=== PATIENT | female | born 1955 | race Caucasian/White ===

== ENCOUNTER 2017-04-03 14:20 | Emergency (ER) | payer OTHER ==
[~2017-04-03] VITALS: Ht 172.7 cm; Wt 74.8 kg
--- NOTE | 2017-04-03 14:41 | RAD ---
CT head without contrast 04/03/2017 Clinical indication: Speech deficit. Comparison: None. Technique: Multiple CT images of the head were obtained without contrast according to standard protocol. PQRS Compliance Statement: One or more of the following individualized dose reduction techniques were utilized for this examination: 1. Automated exposure control 2. Adjustment of the mA and/or kV according to patient size 3. Use of iterative reconstruction technique Findings: No acute intracranial hemorrhage or extra-axial fluid collection. No midline shift. There is mild periventricular white matter low attenuation compatible with mild nonspecific white matter disease. No midline shift. The basal cisterns are patent. The mastoid air cells and visualized paranasal sinuses are well aerated. Impression: 1. No acute intracranial hemorrhage. 2. Mild nonspecific white matter disease, may be related to chronic small vessel ischemic disease.
[2017-04-03 14:46] VITALS: BP 161/97
--- NOTE | 2017-04-03 14:54 | RAD ---
Single view chest 04/03/2017. Clinical indication: Altered mental status. Comparison: Chest 01/14/2016. Findings: Bilateral breast implant capsular calcification. Cardiac and mediastinal silhouettes are unremarkable. Mediastinal, left hilar and left pulmonary calcified granulomas. Calcified atheromatous disease of the thoracic aorta. No pleural effusion, pneumothorax or focal consolidation Impression: No acute cardiopulmonary abnormality.
[2017-04-03 15:00] LABS: BASO # 0.1 x10^3/uL (0.0-0.2); BASO % 1 % (0-3); EOS # 0.2 x10^3/uL (0.0-0.7); EOS % 3 % (0-3); HEMOGLOBIN 15.7 g/dL (12.0-15.5); LYMPH # 1.9 x10^3/uL (1.0-4.8); LYMPH % 27 % (24-48); MEAN CORPUSCULAR HEMOGLOBIN 34 pg (25-35); MEAN CORPUSCULAR HGB CONC 35 g/dL (31-37); MEAN CORPUSCULAR VOLUME 96 fL (79-100); MONO # 0.4 x10^3/uL (0.0-1.1); MONO % 6 % (0-9); NEUT # 4.5 x10^3uL (1.8-7.7); NEUT % 63 % (31-73); PLATELET COUNT 311 x10^3/uL (140-400); RED BLOOD COUNT 4.68 x10^6/uL (3.50-5.40); RED CELL DISTRIBUTION WIDTH 13.9 % (11.5-14.5); WHITE BLOOD COUNT 7.1 x10^3/uL (4.0-11.0)
--- NOTE | 2017-04-03 15:07 | PHYS DOC ---
General Chief Complaint: NEURO SYMPTOMS/DEFICITS Stated Complaint: NA Time Seen by MD: 14:23 Source: patient Exam Limitations: no limitations Problems: History of Present Illness Initial Comments Patient is a 62-year-old female who arrives to the emergency department accompanied by a coworker code stroke. Patient went straight to CT and history obtained by ED staff from the coworker and patient. Initially. Coworker states that approximately 1:45 PM today the patient suddenly stopped talking. Although coworkers could talk to the patient and she appeared to understand she was unable to make any verbalization. 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 On ED after CT the patient began to be able to speak again she denied headache or other focal neurologic deficits. She states that she only came to the ED to appease her boss and did not want to stay. She did agree to stay for CT evaluation which was called back to me as negative. Prior to my seeing the patient staff comes to me telling me she wants to leave AMA. Timing/Duration: other Severity: moderate Modifying Factors: improves with other Associated Symptoms: other Allergies: Coded Allergies: Penicillins (Verified Allergy, Unknown, 04/03/17) Past Medical History Medical History: CVA/TIA/stroke Surgical History: noncontributory Review of Systems All Other Systems: Reviewed and Negative (see history of present illness other review of systems completed) Physical Exam General Appearance: other (see history of present illness and all other physical exam completed) Orders, Labs, Meds Upon receiving news the patient wanted to leave AMA and went to the bedside. The patient had removed her gown and was wearing her street clothes and stated that she did not want a big bill. She said she been ruled out this before and everything turned out to be fine and she Would be that way this time as well. She did not appear to be altered or impaired on any intoxicating substance, she appeared to be of sound mind and exhibited UCAR capacity. I advised her that she would be allowed to sign out AMA with informed consent and she agreed. I discussed risks and benefits of staying for further evaluation and results of current testing versus leaving. Potential benefits or early diagnosis of a very treatable condition which could be life or limb saving. Risks of leaving included possible increased morbidity, loss of quality of life, and . Patient states that she is aware of these issues and continues to request sign out AGAINST MEDICAL ADVICE. I did discuss the departure instructions with her verbally and provided them in written form, I advised her to follow up with her doctor later today or tomorrow and to try to schedule outpatient neurology evaluation. She was advised that she could return at any time for further evaluation and was signed out AGAINST MEDICAL ADVICE by ED staff. I did not perform a physical exam or obtain a full review of systems due to the patient's cooperation and desire to leave AMA Departure Time of Disposition: 15:03 Disposition: 07 AGAINST MEDICAL ADVICE Diagnosis: CVA/TIA Condition: IMPROVED Patient Instructions: Stroke, [id number]-Hgnh Additional Instructions: As discussed, it does appear that you may have suffered a CVA or TIA today. At this point you are requesting immediate discharge from the hospital for results are back. Risks and benefits of staying versus leaving have been discussed with you in detail, potential benefits of staying are early and diagnosis and treatment. Potential risks of leaving our loss of quality of life and/or . You are of sound mind and have the right to leave without further treatment if you choose. You may also choose to return to the emergency department at any time for further evaluation and treatment. Recommend taking an aspirin a day and follow-up with your doctor this week for recheck and to schedule outpatient neurology consultation if you do not choose to return to the hospital. PARESH CHAVIS DO Apr 03, 2017 15:07
[2017-04-03 15:17] LABS: ALBUMIN 3.7 g/dL (3.4-5.0); ALBUMIN/GLOBULIN RATIO 1.1 (1.0-1.7); C REACTIVE PROTEIN 0.7 mg/L (0-3.3); CALCIUM 9.3 mg/dL (8.5-10.1); CREATININE 0.6 mg/dL (0.6-1.0); GFR 101.3; POTASSIUM 4.7 mmol/L (3.5-5.1); TOTAL BILIRUBIN 0.4 mg/dL (0.2-1.0)
== END 2017-04-03 15:06 | disposition left against medical advice (07) ==
LOC: ER 14:20
DX: R29.810 Facial weakness (principal); Z86.73 Personal history of transient ischemic attack (TIA), and cerebral infarction without residual deficits; Z88.0 Allergy status to penicillin
CPT/HCPCS: 36415; 70450; 71045; 80053; 83605; 84484; 85025; 85610; 85730; 86140; 99285; G0480

== ENCOUNTER 2019-09-19 10:11 | Emergency (ER) | payer BC, MEDICARE ==
[~2019-09-19] VITALS: Ht 172.7 cm; Wt 52.3 kg
[2019-09-19] MEDS ORDERED: IV NORMAL SALINE 1,000ML 1,000 ML IV SCH (10:25)
--- NOTE | 2019-09-19 10:29 | PHYS DOC ---
Past History Past Medical History: COPD, CVA, Stroke Past Surgical History: No Surgical History Smoking: Less than 1pk/day Alcohol Use: None Drug Use: None General Adult EDM: Chief Complaint: NAUSEA/VOMITING/DIARRHEA HPI: HPI: Patient is a 64 year old female who presents for evaluation of some abdominal discomfort. Patient has been having some black vomit as well as black stools over the past 2 days. Patient was seen at a [facility] urgent care clinic yesterday and given Zofran with some improvement of symptoms. Patient is on Plavix because she has a history of prior strokes. Patient otherwise benign appearing with no other complaints. Incidentally patient was COVID positive in July but did not have a lot of symptoms at that time Review of Systems: Review of Systems: Constitutional: Denies fever or chills Eyes: Denies change in visual acuity HENT: Denies nasal congestion or sore throat Respiratory: Denies cough or shortness of breath Cardiovascular: Denies chest pain or edema GI: Denies abdominal pain, has nausea, vomiting, with bloody stools, no diarrhea : Denies dysuria Musculoskeletal: Denies back pain or joint pain Integument: Denies rash Neurologic: Denies headache, focal weakness or sensory changes Endocrine: Denies polyuria or polydipsia Lymphatic: Denies swollen glands Psychiatric: Denies depression or anxiety Heart Score: Risk Factors: Risk Factors: DM, Current or recent (<one month) smoker, HTN, HLP, family history of CAD, obesity. Risk Scores: Score 0 - 3: 2.5% MACE over next 6 weeks - Discharge Home Score 4 - 6: 20.3% MACE over next 6 weeks - Admit for Clinical Observation Score 7 - 10: 72.7% MACE over next 6 weeks - Early Invasive Strategies Allergies: Allergies: Allergies Coded Allergies Type Severity Reaction Last Updated Verified Penicillins Allergy Unknown 04/03/17 Yes Physical Exam: PE: Constitutional: Well developed, well nourished, mild acute distress, non-toxic appearance. [] HENT: Normocephalic, atraumatic, bilateral external ears normal, oropharynx moist, no oral exudates, nose normal. [] Eyes: PERRL, EOMI, conjunctiva normal, no discharge. [] Neck: Normal range of motion, no tenderness, supple, no stridor. [] Cardiovascular:Heart rate regular rhythm, no murmur [] Lungs & Thorax: Bilateral breath sounds, scant wheezing bilaterally [] Abdomen: Bowel sounds normal, soft, no tenderness, no masses, no pulsatile masses. [] Skin: Warm, dry, no erythema, no rash. [] Back: No tenderness. [] Extremities: No tenderness, no cyanosis, ROM intact, no edema. [] Neurologic: Alert and oriented X 3, normal motor function, normal sensory function, no focal deficits noted. [] Psychologic: Affect normal, judgement normal, mood normal. Rectal: large non-bleeding hemorrhoid present, tender rectum, black stool present[] Current Patient Data: Vital Signs: Vital Signs Date Time Temp Pulse Resp B/P (MAP) Pulse Ox O2 Delivery O2 Flow Rate FiO2 09/19/19 10:21 97.8 93 16 117/77 (90 97 Room Air EKG: EKG: EKG shows normal sinus rhythm, rate 95, nonspecific ST segment changes and a flat T wave in lead aVL, not STEMI [] Radiology/Procedures: Radiology/Procedures: [address] [address] IMAGING REPORT Signed PATIENT: CALIXTO BARRAZA ACCOUNT: [id number] : 1955 LOCATION: ER AGE: 64 SEX: F EXAM STATUS: REG ER ORD. PHYSICIAN: BLUE MANRIQUE DO REASON: abd discomfort, dark stools, dark vomit 60CC OMNI PROCEDURE: CT ABD PELV W/ORAL&IV CONTRAST Examination: CT ABD PELV W/ORAL IV CONTRAST History: Reason: abd discomfort, dark stools, dark vomit 60CC OMNI / Spl. Instructions: DRINKING 1130 / History: Comparison/Correlation: None Findings: Axial images of the abdomen and pelvis were obtained finding IV and oral contrast. Sagittal and coronal reformatted images were provided. Breast implants which are partially calcified are noted bilaterally on the topogram. Small hiatal hernia is present. Visualized lung bases are clear. Liver, spleen, pancreas, adrenal glands, and right kidney are normal. Nonobstructive left renal superior pole calyceal calculus is present. Circumferential wall thickening of the gastric pyloric region is present. This may represent contraction or spasm. No surrounding inflammatory finding. Gallbladder fossa is unremarkable. Slight intrahepatic biliary prominence is noted. No significant biliary distention. No large abdominal or pelvic lymph nodes. No ascites or pelvic free fluid. No inflammatory changes involving the bowel. No bowel obstruction. No inflammatory changes in particular noted about the cecum. Appendix is not definitely delineated. Minimal mesenteric fat may limit assessment. Urinary bladder is unremarkable. Uterus is atrophic or absent. Minimal retrolisthesis of L5 in relation to L4. Disc osteophyte complex noted from L1 through L4. Impression: Small hiatal hernia. No acute inflammatory process or obstruction. Circumferential wall thickening of the gastric pyloric region. This may represent contraction or spasm. Correlate clinically in determining further assessment. Nonobstructive left renal calculus. PQRS Compliance Statement: One or more of the following individualized dose reduction techniques were utilized for this examination: 1. Automated exposure control 2. Adjustment of the mA and/or kV according to patient size 3. Use of iterative reconstruction technique Electronically signed by: Paul Kwong MD (09/19/2019 1:18 PM) [id number] DICTATED AND SIGNED BY: PAUL KWONG MD DATE: 09/19/19 1318 CC: PCP,NO; BLUE MANRIQUE DO ~ [] Course & Med Decision Making: Course & Med Decision Making Pertinent Labs and Imaging studies reviewed. (See chart for details) [] Dragon Disclaimer: Courtney Disclaimer: This electronic medical record was generated, in whole or in part, using a voice recognition dictation system. 1315 stable, feeling better at this time. Dr. Howard (hospitalist) called and we discussed case at length. We agreed patient needs to be admitted but his preference would be to transfer the patient to [facility] because they have GI and general surgical capability. Patient has a gastrointestinal b leed and is on Plavix as a blood thinner. We felt this patient was too dangerous to go home. Patient is refused ambulance transport however, her daughter will drive her. She signed AGAINST MEDICAL ADVICE regarding the ambulance transport 1332 patient change her mind and now wishes to be transferred to [facility]. Her family doctor is at that hospital. 1403 Dr. Hidalgo, pt's physician from [facility] called back and accepted pt for transfer. Pt continues to refuse ambulance transfer. Departure Departure: Impression: Primary Impression: Upper GI bleed Additional Impression: Anemia Disposition: 05 TRANSFER OTHER (Dr. Hidalgo is the accepting physician to [facility]) Condition: STABLE Referrals: PCP,NO (PCP) Justification of Admission: Justification of Admission: Justification of Admission Dx: N/A BLUE MANRIQUE DO Sep 19, 2019 10:29
[2019-09-19] MEDS ORDERED: FAMOTIDINE 20 MG/2 ML VIAL IVP ONE (10:30)
--- NOTE | 2019-09-19 10:45 | EKG ---
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
[2019-09-19 11:12] LABS: BASO % 0 % (0-3); EOS % 0 % (0-3); HEMATOCRIT 32.7 % (36.0-47.0); HEMOGLOBIN 10.7 g/dL (12.0-15.5); LYMPH # 1.3 x10^3/uL (1.0-4.8); LYMPH % 11 % (24-48); MEAN CORPUSCULAR HEMOGLOBIN 34 pg (25-35); MEAN CORPUSCULAR HGB CONC 33 g/dL (31-37); MEAN CORPUSCULAR VOLUME 102 fL (79-100); MONO # 0.4 x10^3/uL (0.0-1.1); MONO % 3 % (0-9); NEUT # 9.8 x10^3uL (1.8-7.7); NEUT % 85 % (31-73); PLATELET COUNT 313 x10^3/uL (140-400); RED CELL DISTRIBUTION WIDTH 15.1 % (11.5-14.5); WHITE BLOOD COUNT 11.5 x10^3/uL (4.0-11.0)
[2019-09-19 11:21] LABS: CALCIUM 9.3 mg/dL (8.5-10.1); GFR 55.6; POTASSIUM 3.8 mmol/L (3.5-5.1)
[2019-09-19] MEDS ORDERED: IOHEXOL 240 MG/ML 50ML VIAL. ONE (11:24)
[2019-09-19 11:26] LABS: ALBUMIN 3.6 g/dL (3.4-5.0); ALBUMIN/GLOBULIN RATIO 1.2 (1.0-1.7); TOTAL BILIRUBIN 0.3 mg/dL (0.2-1.0); TOTAL PROTEIN 6.5 g/dL (6.4-8.2)
[2019-09-19 11:29] LABS: BILIRUBIN,URINE NEG (NEG); CLARITY,URINE CLEAR; COLOR,URINE YELLOW; GLUCOSE,URINE NEG (NEG)
[2019-09-19 11:30] LABS: BACTERIA,URINE 0 /HPF (0-FEW); NITRITE,URINE NEG (NEG); SQUAMOUS EPITHELIAL CELL,UR OCC /LPF; UROBILINOGEN,URINE 0.2 mg/dL (0.2 mg/dL)
[2019-09-19] MEDS ORDERED: IOHEXOL 240 MG/ML 50ML VIAL. PO ONE (11:45)
[2019-09-19] MEDS ORDERED: IOHEXOL 300 MG/ML 75 ML VIAL. IV ONE (11:45)
[2019-09-19 12:04] LABS: FECAL OB PT POSITIVE (NEG)
--- NOTE | 2019-09-19 13:21 | RAD ---
Examination: CT ABD PELV W/ORAL IV CONTRAST History: Reason: abd discomfort, dark stools, dark vomit 60CC OMNI / Spl. Instructions: DRINKING 1130 / History: Comparison/Correlation: None Findings: Axial images of the abdomen and pelvis were obtained finding IV and oral contrast. Sagittal and coronal reformatted images were provided. Breast implants which are partially calcified are noted bilaterally on the topogram. Small hiatal hernia is present. Visualized lung bases are clear. Liver, spleen, pancreas, adrenal glands, and right kidney are normal. Nonobstructive left renal superior pole calyceal calculus is present. Circumferential wall thickening of the gastric pyloric region is present. This may represent contraction or spasm. No surrounding inflammatory finding. Gallbladder fossa is unremarkable. Slight intrahepatic biliary prominence is noted. No significant biliary distention. No large abdominal or pelvic lymph nodes. No ascites or pelvic free fluid. No inflammatory changes involving the bowel. No bowel obstruction. No inflammatory changes in particular noted about the cecum. Appendix is not definitely delineated. Minimal mesenteric fat may limit assessment. Urinary bladder is unremarkable. Uterus is atrophic or absent. Minimal retrolisthesis of L5 in relation to L4. Disc osteophyte complex noted from L1 through L4. Impression: Small hiatal hernia. No acute inflammatory process or obstruction. Circumferential wall thickening of the gastric pyloric region. This may represent contraction or spasm. Correlate clinically in determining further assessment. Nonobstructive left renal calculus. PQRS Compliance Statement: One or more of the following individualized dose reduction techniques were utilized for this examination: 1. Automated exposure control 2. Adjustment of the mA and/or kV according to patient size 3. Use of iterative reconstruction technique Electronically signed by: Paul Lozano MD (09/19/2019 1:18 PM) [id number]
[2019-09-19 15:13] VITALS: BP 109/69
== END 2019-09-19 15:23 | disposition short-term general hospital (02) ==
LOC: ER 10:11
DX: K92.2 Gastrointestinal hemorrhage, unspecified (principal); D64.9 Anemia, unspecified; J44.9 Chronic obstructive pulmonary disease, unspecified; F17.200 Nicotine dependence, unspecified, uncomplicated; Z86.73 Personal history of transient ischemic attack (TIA), and cerebral infarction without residual deficits; Z88.0 Allergy status to penicillin
CPT/HCPCS: 36415; 74177; 80053; 81001; 82274; 83690; 85025; 86850; 86900; 86901; 87086; 93005; 96361; 96374; 99285; J3490; J7030; Q9966; Q9967